=== PATIENT | female | born 1970 ===

== ENCOUNTER 2025-03-07 10:15 | Inpatient (IN) | payer OTHER ==
[~2025-03-07] VITALS: Ht 160 cm; Wt 66.7 kg
[2025-03-13] MEDS ORDERED: CEFAZOLIN SODIUM 1,000 MG VIAL ONE ×2 (11:10→16:20)
[2025-03-13] MEDS ORDERED: TRANEXAMIC ACID 100MG/1ML (1000MG) AMPUL ONE (11:11)
[2025-03-13] MEDS ORDERED: KETOROLAC TROMETHAMINE 60 MG VIAL IM ONE (11:16)
[2025-03-13] MEDS ORDERED: BUPIVACAINE HCL/MPF 0.5% 30ML VIAL ONE (11:16)
[2025-03-13] MEDS ORDERED: LIDOCAINE HCL 1%/EPINEPHRINE 20ML VIAL IJ ONE (11:17)
[2025-03-13] MEDS ORDERED: VANCOMYCIN HCL 1,000 MG VIAL ONE (11:17)
[2025-03-13] MEDS ORDERED: MORPHINE SULFATE 4 MG/ML CARTRIDGE IV ONE (12:00)
[2025-03-13] MEDS ORDERED: ONDANSETRON HCL 2 MG/ML VIAL IV PRN ×2 (15:30)
[2025-03-13] MEDS ORDERED: OxyCODONE HCL 5 MG TABLET (ROXICODONE) PO PRN ×2 (15:30)
[2025-03-13] MEDS ORDERED: SODIUM CHLORIDE 0.45 % 1,000 ML IV SCH ×2 (15:30)
[2025-03-13] MEDS ORDERED: MORPHINE SULFATE 4 MG/ML CARTRIDGE IV PRN ×2 (15:30)
[2025-03-13 16:00] VITALS: BP 145/89; O2SAT 98
[2025-03-13] MEDS ORDERED: GABAPENTIN 300 MG CAPSULE PO ONE (16:20)
[2025-03-13] MEDS ORDERED: ACETAMINOPHEN 500 MG GEL..CAP PO ONE (16:35)
[2025-03-13] MEDS ORDERED: CEFAZOLIN SODIUM 1,000 MG VIAL IV SCH ×2 (17:00)
[2025-03-13] MEDS ORDERED: GABAPENTIN 300 MG CAPSULE PO SCH ×2 (17:00)
[2025-03-13] MEDS ORDERED: ACETAMINOPHEN 500 MG GEL..CAP PO SCH ×2 (18:00)
[2025-03-14 00:30] VITALS: BP 106/62; O2SAT 98
[2025-03-14 07:34] LABS: BASO % 0.2 % (0.1-1.2); EOS # 0.08 (0.04-0.54); EOS % 1.0 % (0.7-7.0); LYMPH # 1.31 (1.18-3.74); LYMPH % 15.8 % (19.3-53.1); MEAN PLATELET VOLUME 12.00 fl (9.4-12.4); MONO # 0.77 (0.24-0.82); MONO % 9.3 % (4.7-12.5); NEUT # 6.08 (1.56-6.13); NEUT % 73.3 % (34.0-71.1); RED CELL DISTRIBUTION WIDTH 12.5 % (11.6-14.4)
[2025-03-14] MEDS ORDERED: SENNOSIDES 1 TAB TABLET PO SCH ×2 (09:00)
[2025-03-14] MEDS ORDERED: APIXABAN 2.5 MG TABLET PO SCH (09:00)
[2025-03-14] MEDS ORDERED: PERCOCET 5-3251 EACH PO (09:01)
[2025-03-14] MEDS ORDERED: DUI500 PO (09:01)
[2025-03-14] MEDS ORDERED: ELIQUIS2.5 MG PO (09:01)
[2025-03-14 13:07] LABS: COVID-19 AG NEGATIVE (NEGATIVE)
[2025-03-14 15:30] VITALS: BP 152/80; O2SAT 95
[2025-03-15 01:54] VITALS: BP 149/86; O2SAT 97
[2025-03-15 06:47] LABS: BASO % 0.3 % (0.1-1.2); EOS # 0.26 (0.04-0.54); EOS % 2.8 % (0.7-7.0); LYMPH # 1.55 (1.18-3.74); LYMPH % 16.5 % (19.3-53.1); MEAN PLATELET VOLUME 12.20 fl (9.4-12.4); MONO # 0.78 (0.24-0.82); MONO % 8.3 % (4.7-12.5); NEUT # 6.73 (1.56-6.13); NEUT % 71.8 % (34.0-71.1); RED CELL DISTRIBUTION WIDTH 12.5 % (11.6-14.4)
[2025-03-15] MEDS ORDERED: IRON FUM,PS/FOLIC ACID/VITC/B3 1 CAP CAPSULE PO SCH ×2 (09:00)
== END 2025-03-15 20:45 | DRG 470 ==
LOC: O/R 03-13 08:00 → SURH 03-13 10:15 → SURG 03-13 13:56 → SURH 03-13 17:00 → SURG 03-15 20:45
PROVIDERS: ADMIT Orthopaedic Surgery; ATTEND Orthopaedic Surgery
PROC: 0MNP0ZZ Release Left Knee Bursa and Ligament, Open Approach (ICD-10-PCS; 2025-03-13)
PROC: 0SUD07Z Supplement Left Knee Joint with Autologous Tissue Substitute, Open Approach (ICD-10-PCS; 2025-03-13)
PROC: 0SRD0JZ Replacement of Left Knee Joint with Synthetic Substitute, Open Approach (ICD-10-PCS; principal; 2025-03-13 17:00)
DX: M17.12 Unilateral primary osteoarthritis, left knee (principal); M22.12 Recurrent subluxation of patella, left knee; E66.9 Obesity, unspecified